=== PATIENT | male | born 2000 | race African-American/Black ===

== ENCOUNTER 2021-02-22 15:06 | Emergency (ER) | payer OTHER ==
[~2021-02-22] VITALS: Ht 185.4 cm; Wt 74.8 kg
[~2021-02-22 15:06] MED LIST: BACTRIM DS TAB1 EACH; CITRATE OF MAG296 ML PO; COLACE 100 MG100 MG PO; NOHOMEMEDICATIONS
[2021-02-22] MEDS ORDERED: PREDNISONE 10 M10 MG PO (16:13)
[2021-02-22] MEDS ORDERED: PROAIR HFA8.5 GM INH (16:13)
[2021-02-22] MEDS ORDERED: TESSALON PERLE100 M1 PO (16:13)
[2021-02-22 17:19] VITALS: BP 112/75
== END 2021-02-22 17:20 | disposition home or self-care (01) ==
LOC: ER 15:06
DX: J32.9 Chronic sinusitis, unspecified (principal); Z20.822 Contact with and (suspected) exposure to COVID-19; J06.9 Acute upper respiratory infection, unspecified